=== PATIENT | male | born 1950 | race Caucasian/White ===

== ENCOUNTER 2017-02-09 07:18 | Emergency (ER) | payer OTHER ==
[2017-02-09 07:24] VITALS: BP 163/92; BMI 25.1
[2017-02-09] MEDS ORDERED: DUONEB 0.5 MG/3 MG NEB ONE ×2 (07:57→08:45)
[2017-02-09] MEDS ORDERED: SOLU-Medrol 125 MG VIAL IVP ONE (07:58)
--- NOTE | 2017-02-09 07:58 | DR.GENAD ---
HPI - PCP Primary Care Physician: none - Complaint/Symptoms Chief Complaint Doctors Comments: Patient states that he went to the [facility] over the weekend and slept in the back of his truck. He got exposed to the weather and now had dyspnea Chief Complaint:: " I think I have pnemonia" I slept outside three days ago and i have been sick ever since coughing and runny nose. - Source History Provided: Patient - Mode of Arrival Mode of Arrival: Ambulatory - Timing Onset of Chief Complaint: 02/06/17 <CORAL JUSTIN - Last Filed: 02/09/17 08:05> PMH - PMH Past Medical History: Yes Past Medical History: COPD, Hypertension Past Surgical History: Yes Surgical History: Ortho Surgery - Family History History of Family Medical Conditions: Yes Family Medical History: Diabetes Mellitus - Social History Does any household member use tobacco: No Alcohol Use: None Do you use any recreational Drugs:: No Lives With: Family Lives Where: Home - infectious screening In the last 2 months have you had wt loss of >10#?: NO Have you had fever, night sweats or hemotysis?: No Have you traveled outside the country in the last 6 months?: No Isolation: Standard <CORAL JUSTIN - Last Filed: 02/09/17 08:05> ROS - Review of Systems Constitutional: No Symptoms Reported Eyes: No Symptoms Reported ENTM: No Symptoms Reported Respiratoy: No Symptoms Reported Cardiovascular: No Symptoms Reported Gastrointestinal/Abdominal: No Symptoms Reported Genitourinary: No Symptoms Reported Neurological: No Symptoms Reported Musculoskeletal: No Symptoms Reported Integumentary: No Symptoms Reported Hematologic/Lymphatic: No Symptoms Reported Endocrine: No Symptoms Reported Psychiatric: No Symptoms Reported <CORAL JUSTIN - Last Filed: 02/09/17 08:05> PE - General General Appearance: Alert, In No Apparent Distress - Head Head Exam: Normal Inspection, Atraumatic - Eyes Eye exam: Normal Appearance, PERRL, EOMI - ENT ENT Exam: Normal Exam External Ear Exam: Normal External Inspection TM/Canal Exam: Bilateral Normal Nose Exam: Normal Nose Exam Mouth Exam: Normal Inspection Throat Exam: Normal Inspection - Neck Neck Exam: Normal Inspection, Trachea Midline - Chest Chest Inspection: Normal Inspection - Respiratory Respiratory Exam: Normal Lung Sounds Bilat Respiratory Exam: Bilateral Clear to Auscultation - Cardiovascular Cardiovascular Exam: Regular Rate - Abdominal Exam Abdominal Exam: Normal Inspection Abdominal Tenderness: negative: RUQ, RLQ, LUQ, LLQ, Epigastrium, Suprapubic, Diffuse, Mild, Moderate, Severe, Other - Extremities Extremities Exam: Normal Inspection - Back Back Exam: Normal Inspection - Neurologic Neurological Exam: Alert, Oriented X3, CN II-XII Intact - Psychiatric Psychiatric Exam: Normal Affect - Skin Skin Exam: Warm, Dry, Intact <CORAL JUSTIN - Last Filed: 02/09/17 08:05> ROR - Labs Reviewed Result Diagrams: 02/09/17 08:08 02/09/17 08:08 <MARIPOSA WOODS - Last Filed: 02/09/17 09:59> - Labs Reviewed Laboratory: WBC 12.3 X10^3/uL (3.6-10.0) H 02/09/17 08:08 RBC 4.69 X10^6/uL (4.7-6.0) L 02/09/17 08:08 Hgb 14.8 g/dL (13.5-18.0) 02/09/17 08:08 Hct 43.4 % (42.0-54.0) 02/09/17 08:08 MCV 92.6 fL (80.0-100.0) 02/09/17 08:08 MCH 31.6 pg (27.0-34.0) 02/09/17 08:08 MCHC 34.2 g/dL (33.0-35.0) 02/09/17 08:08 RDW 13.0 % (11.6-16.5) 02/09/17 08:08 Plt Count 199 X10^3/uL (150.0-450.0) 02/09/17 08:08 Plt Count Comment Adequate (ADEQUATE) 02/09/17 08:08 MPV 9.3 fL (7.4-11.0) 02/09/17 08:08 Neut % 78.7 % (42.0-75.0) H 02/09/17 08:08 Lymph % 8.4 % (21.0-51.0) L 02/09/17 08:08 Ellsworth % 12.1 % (0.0-13.0) 02/09/17 08:08 Eos % 0.6 % (0.9-2.9) L 02/09/17 08:08 Baso % 0.2 % (0.2-1.0) 02/09/17 08:08 Neut # 9.7 x10^3/uL (2.2-4.8) H 02/09/17 08:08 Lymph # 1.0 X10^3/uL (1.3-2.9) L 02/09/17 08:08 Ellsworth # 1.5 x10^3/uL (0.3-0.8) H 02/09/17 08:08 Eos # 0.1 x10^3/uL (0.0-0.2) 02/09/17 08:08 Baso # 0.0 X10^3/uL (0.0-0.1) 02/09/17 08:08 Absolute Nucleated RBC 0.0 /100WBC 02/09/17 08:08 Total Counted 100 02/09/17 08:08 Neutrophils % (Manual) 86 % (39-76) H 02/09/17 08:08 Band Neutrophils % 1 % (0-10) 02/09/17 08:08 Lymphocytes % (Manual) 5 % (13-43) L 02/09/17 08:08 Monocytes % (Manual) 8 % (4-9) 02/09/17 08:08 Plt Morphology Comment Normal (NORMAL) 02/09/17 08:08 RBC Morphology Normal (NORMAL) 02/09/17 08:[address] [facility] 02/09/17 08:20 ABG pH 7.450 (7.35-7.45) 02/09/17 08:20 ABG pCO2 34.0 mmHg (35.0-45.0) L 02/09/17 08:20 ABG pO2 65.0 mmHg (80.0-100.0) L 02/09/17 08:20 ABG HCO3 23.6 mmol/L (22-26) 02/09/17 08:20 ABG O2 Saturation 93.0 % (90-100) 02/09/17 08:20 ABG Base Excess 0.1 mmol/L (-2.0-2.0) 02/09/17 08:20 Erwin Test Pos 02/09/17 08:20 A-a Gradient 42.0 mmHg 02/09/17 08:20 FiO2 21.000 02/09/17 08:20 Blood Gas Comments Raghavendra well gb 02/09/17 08:20 Sodium 137 mmol/L (136-145) 02/09/17 08:08 Corrected Sodium TNP 02/09/17 08:08 Potassium 4.0 mmol/L (3.5-5.1) 02/09/17 08:08 Chloride 100 mmol/L (98-107) 02/09/17 08:08 Carbon Dioxide 26.5 mmol/L (21-32) 02/09/17 08:08 BUN 13 mg/dL (7-18) 02/09/17 08:08 Creatinine 0.71 mg/dL (0.70-1.30) 02/09/17 08:08 Est GFR (MDRD) Af Amer > 60 (>60) 02/09/17 08:08 Est GFR (MDRD) Non-Af > 60 (>60) 02/09/17 08:08 Glucose 96 mg/dL (65-99) 02/09/17 08:08 Calcium 8.7 mg/dL (8.5-10.1) 02/09/17 08:08 Corrected Calcium 9.3 mg/dL (8.5-10.1) 02/09/17 08:08 Total Bilirubin 0.40 mg/dL (0.2-1.0) 02/09/17 08:08 AST 17 Units/L (15-37) 02/09/17 08:08 ALT 22 Units/L (12-78) 02/09/17 08:08 Alkaline Phosphatase 67 Units/L (46-116) 02/09/17 08:08 Total Protein 7.4 g/dL (6.4-8.2) 02/09/17 08:08 Albumin 3.2 g/dL (3.4-5.0) L 02/09/17 08:08 Globulin 4.2 g/dL (2.5-4.5) 02/09/17 08:08 Albumin/Globulin Ratio 0.8 Ratio (1.1-2.1) L 02/09/17 08:08 (MARIPOSA WOODS) <CORAL JUSTIN - Last Filed: 02/09/17 08:05> <MARIPOSA WOODS - Last Filed: 02/09/17 09:59> - Diagnosis Discharge Problem: Acute bronchitis, COPD (chronic obstructive pulmonary disease) with acute bronchitis - Discharge Plan Disposition: 01 HOME, SELF-CARE Condition: Stable Prescriptions: Azithromycin [ZITHROMAX Tab 250 mg *] 1 dose PO DAILY #6 tab Methylprednisolone Dosepak 4Mg [MEDROL DOSEPAK (4 mg tab x 21)] 1 thuan PO ONCE # 1 thuan - Follow ups/Referrals Follow ups/Referrals: NFD,None [Primary Care Provider] - 3 days - Instructions
[2017-02-09] MEDS ORDERED: NS 1000 ML 1,000 ML IV SCH (08:00)
[2017-02-09] MEDS ORDERED: DUONEB 0.5 MG/3 MG ONE (08:00)
[2017-02-09] MEDS ORDERED: SOLU-Medrol 125 MG VIAL ONE (08:05)
[2017-02-09 08:19] LABS: BASOPHILS % (AUTO) 0.2 % (0.2-1.0); EOSINOPHILS # (AUTO) 0.1 x10^3/uL (0.0-0.2); EOSINOPHILS % (AUTO) 0.6 % (0.9-2.9); HEMATOCRIT 43.4 % (42.0-54.0); HEMOGLOBIN 14.8 g/dL (13.5-18.0); LYMPHOCYTES % (AUTO) 8.4 % (21.0-51.0); MEAN CORPUSCULAR HEMOGLOBIN 31.6 pg (27.0-34.0); MEAN CORPUSCULAR HGB CONC 34.2 g/dL (33.0-35.0); MEAN CORPUSCULAR VOLUME 92.6 fL (80.0-100.0); MEAN PLATELET VOLUME 9.3 fL (7.4-11.0); MONOCYTES # (AUTO) 1.5 x10^3/uL (0.3-0.8); MONOCYTES % (AUTO) 12.1 % (0.0-13.0); NEUTROPHILS # (AUTO) 9.7 x10^3/uL (2.2-4.8); NEUTROPHILS % (AUTO) 78.7 % (42.0-75.0); PLATELET COUNT 199 X10^3/uL (150.0-450.0); RED BLOOD COUNT 4.69 X10^6/uL (4.7-6.0); WHITE BLOOD COUNT 12.3 X10^3/uL (3.6-10.0)
[2017-02-09] MEDS ORDERED: DECADRON INJ IM ONE (08:21)
--- NOTE | 2017-02-09 08:21 | RAD ---
HISTORY: COPD exacerbation Study: AP chest Comparison: 06/22/2016 Findings: There is moderate upper lobe predominant centrilobular emphysema. Since previous examination there h as been development of reticulonodular interstitial opacities in the left lung base The left lateral costophrenic sulcus was excluded from the field of view. The cardiac silhouette is normal in size. IMPRESSION: 1. Emphysema, with interval increased reticulonodular interstitial opacities in the left lung base. This is nonspecific however can be seen in the setting of atypical pneumonia. Radiographic followup recommended.. Reported By:
[2017-02-09 08:25] LABS: ABG ALLEN TEST POS; ABG BASE EXCESS 0.1 mmol/L (-2.0-2.0); ABG HCO3 23.6 mmol/L (22-26)
[2017-02-09 08:35] LABS: ALANINE AMINOTRANSFERASE 22 Units/L (12-78); ALBUMIN 3.2 g/dL (3.4-5.0); ALKALINE PHOSPHATASE 67 Units/L (46-116); ASPARTATE AMINO TRANSFERASE 17 Units/L (15-37); BLOOD UREA NITROGEN 13 mg/dL (7-18); CALCIUM 8.7 mg/dL (8.5-10.1); CARBON DIOXIDE 26.5 mmol/L (21-32); CHLORIDE 100 mmol/L (98-107); COR CA(FOR HYPOALB) 9.3 mg/dL (8.5-10.1); CREATININE 0.71 mg/dL (0.70-1.30); GLUCOSE 96 mg/dL (65-99); SODIUM 137 mmol/L (136-145); TOTAL PROTEIN 7.4 g/dL (6.4-8.2); eGFR BLACK RACES > 60 (>60); eGFR NON BLACK RACES > 60 (>60)
[2017-02-09 08:42] LABS: BAND NEUTROPHILS % 1 % (0-10)
[2017-02-09 08:44] LABS: PLATELET MORPHOLOGY COMMENT NORMAL (NORMAL)
[2017-02-09] MEDS ORDERED: ROCEPHIN VIAL 2 GM 2 GM in NS 50 ML IV + SPIKE MINIBAG* 50 ML IV ONE (08:44)
[2017-02-09] MEDS ORDERED: ROCEPHIN VIAL 2 GM ONE (09:28)
[2017-02-09] MEDS ORDERED: NS 1000 ML 1,000 ML ONE (09:28)
[2017-02-09] MEDS ORDERED: DECADRON INJ ONE (09:29)
[2017-02-09] MEDS ORDERED: NS 50 ML IV + SPIKE MINIBAG* 50 ML IV ONE (09:29)
== END 2017-02-09 10:35 | disposition home or self-care (01) ==
LOC: ER 07:28
DX: J20.9 Acute bronchitis, unspecified (principal); J44.1 Chronic obstructive pulmonary disease with (acute) exacerbation; J43.8 Other emphysema
CPT/HCPCS: 36415; 36600; 71010; 80053; 82803; 85025; 94640; 96365; 96367; 96372; 96374; 99283; A4222; J0696; J1100; J2930; J7620

== ENCOUNTER 2017-05-01 09:58 | Inpatient (IN) | payer OTHER ==
[2017-05-01] MEDS ORDERED: SOLU-Medrol 125 MG VIAL IVP NR (11:35)
[2017-05-01] MEDS: DUONEB 0.5 MG/3 MG NEB SCH ×4 (11:51→20:58)
[2017-05-01 11:54] VITALS: BMI 25.1
[2017-05-01 12:24] LABS: BASOPHILS % (AUTO) 0.2 % (0.2-1.0); EOSINOPHILS % (AUTO) 0.2 % (0.9-2.9); HEMATOCRIT 41.1 % (42.0-54.0); LYMPHOCYTES # (AUTO) 1.1 X10^3/uL (1.3-2.9); LYMPHOCYTES % (AUTO) 11.6 % (21.0-51.0); MEAN CORPUSCULAR HEMOGLOBIN 31.9 pg (27.0-34.0); MEAN CORPUSCULAR VOLUME 93.6 fL (80.0-100.0); MEAN PLATELET VOLUME 9.1 fL (7.4-11.0); MONOCYTES % (AUTO) 20.6 % (0.0-13.0); NEUTROPHILS # (AUTO) 6.4 x10^3/uL (2.2-4.8); NEUTROPHILS % (AUTO) 67.4 % (42.0-75.0); PLATELET COUNT 212 X10^3/uL (150.0-450.0); RED BLOOD COUNT 4.39 X10^6/uL (4.7-6.0); RED CELL DISTRIBUTION WIDTH 13.3 % (11.6-16.5); WHITE BLOOD COUNT 9.5 X10^3/uL (3.6-10.0)
[2017-05-01] MEDS: KLONOPIN TAB 0.5 MG PO SCH ×2 (12:30→21:06)
[2017-05-01 12:34] LABS: PLATELET MORPHOLOGY COMMENT NORMAL (NORMAL)
[2017-05-01 12:47] LABS: ALANINE AMINOTRANSFERASE 21 Units/L (12-78); ALBUMIN 3.3 g/dL (3.4-5.0); ALKALINE PHOSPHATASE 65 Units/L (46-116); ASPARTATE AMINO TRANSFERASE 15 Units/L (15-37); BLOOD UREA NITROGEN 12 mg/dL (7-18); CALCIUM 9.3 mg/dL (8.5-10.1); CARBON DIOXIDE 29.7 mmol/L (21-32); CHLORIDE 100 mmol/L (98-107); COR CA(FOR HYPOALB) 9.9 mg/dL (8.5-10.1); CREATINE KINASE 88 Units/L (39-308); CREATINE KINASE MB 3.5 ng/mL (0-4.0); CREATININE 0.84 mg/dL (0.70-1.30); SODIUM 137 mmol/L (136-145); TOTAL PROTEIN 6.9 g/dL (6.4-8.2); TROPONIN I < 0.02 ng/mL (0-1.5); eGFR BLACK RACES > 60 (>60); eGFR NON BLACK RACES > 60 (>60)
[2017-05-01 15:45] LABS: CKMB % 3.9 % (<4); CREATINE KINASE 74 Units/L (39-308); CREATINE KINASE MB 2.9 ng/mL (0-4.0); TROPONIN I < 0.02 ng/mL (0-1.5)
--- NOTE | 2017-05-01 17:08 | RAD ---
HISTORY: Shortness of breath Study: Single view chest Comparison: 02/09/2017 Findings: Single portable view is submitted. The lungs are clear without consolidation, effusion or pneumothora x. The cardiac and mediastinal contours are within normal limits. The soft tissues are unremarkable. IMPRESSION: 1. No acute cardiopulmonary abnormality. Reported By:
[2017-05-01 19:39] LABS: CKMB % 4.1 % (<4); CREATINE KINASE 70 Units/L (39-308); CREATINE KINASE MB 2.9 ng/mL (0-4.0); TROPONIN I < 0.02 ng/mL (0-1.5)
[2017-05-01] MEDS: SOLU-Medrol 40 MG VIAL IVP SCH (21:06)
[2017-05-01] MEDS ORDERED: PEPCID TAB 20 MG PO SCH (22:00)
[2017-05-02 00:13] LABS: CKMB % 4.7 % (<4); CREATINE KINASE 58 Units/L (39-308); CREATINE KINASE MB 2.7 ng/mL (0-4.0); TROPONIN I < 0.02 ng/mL (0-1.5)
[2017-05-02] MEDS: DUONEB 0.5 MG/3 MG NEB SCH ×2 (00:46→05:27)
[2017-05-02] MEDS: SOLU-Medrol 40 MG VIAL IVP SCH (05:32)
[2017-05-02 05:48] LABS: ABG ALLEN TEST POS
[2017-05-02 05:55] LABS: ALANINE AMINOTRANSFERASE 20 Units/L (12-78); ALBUMIN 2.9 g/dL (3.4-5.0); ALKALINE PHOSPHATASE 60 Units/L (46-116); ASPARTATE AMINO TRANSFERASE 14 Units/L (15-37); BLOOD UREA NITROGEN 14 mg/dL (7-18); CALCIUM 9.3 mg/dL (8.5-10.1); CARBON DIOXIDE 31.4 mmol/L (21-32); CHLORIDE 102 mmol/L (98-107); COR CA(FOR HYPOALB) 10.2 mg/dL (8.5-10.1); COR NA(FOR HYPERGLY) 140 mmol/L (136-145); CREATININE 0.72 mg/dL (0.70-1.30); SODIUM 139 mmol/L (136-145); TOTAL PROTEIN 6.7 g/dL (6.4-8.2); eGFR BLACK RACES > 60 (>60); eGFR NON BLACK RACES > 60 (>60)
[2017-05-02 06:04] LABS: BASOPHILS % (AUTO) 0.1 % (0.2-1.0); HEMATOCRIT 42.1 % (42.0-54.0); HEMOGLOBIN 14.1 g/dL (13.5-18.0); LYMPHOCYTES # (AUTO) 0.7 X10^3/uL (1.3-2.9); LYMPHOCYTES % (AUTO) 8.4 % (21.0-51.0); MEAN CORPUSCULAR HEMOGLOBIN 31.5 pg (27.0-34.0); MEAN CORPUSCULAR HGB CONC 33.6 g/dL (33.0-35.0); MONOCYTES % (AUTO) 11.3 % (0.0-13.0); NEUTROPHILS # (AUTO) 7.1 x10^3/uL (2.2-4.8); NEUTROPHILS % (AUTO) 80.2 % (42.0-75.0); PLATELET COUNT 221 X10^3/uL (150.0-450.0); RED BLOOD COUNT 4.48 X10^6/uL (4.7-6.0); RED CELL DISTRIBUTION WIDTH 13.7 % (11.6-16.5); WHITE BLOOD COUNT 8.9 X10^3/uL (3.6-10.0)
[2017-05-02 06:59] VITALS: BP 183/94
[2017-05-02] MEDS ORDERED: MUCINEX DM PO SCH (09:00)
[2017-05-02 18:34] LABS: ABG BASE EXCESS 7.8 mmol/L (-2.0-2.0)
[2017-05-02 18:36] LABS: ABG HCO3 34.5 mmol/L (22-26)
[2017-05-02 18:37] LABS: FRACTIONATED INSPIRED OXYGEN 28
--- NOTE | 2017-05-04 10:02 | DR.CARTERS ---
Short Stay Summary - Short Stay Summary for: Short Stay Summary for Date of:: 05/02/17 - Admission Date Date of Admission: 05/01/17 - Discharge Date Discharge Date: 05/02/17 - Admission Diagnoses (1) COPD (chronic obstructive pulmonary disease) with acute bronchitis Status: Acute - Hospital Course Hospital Course: DAY 1: IS A 66 YEAR OLD WHITE MALE WHO WAS A DIRECT ADMISSION FOR COPD , HYPOXIA, SHORTNESS OF BREATH, AND BRONCHITIS. HE PRESENTED WITH COMPLAINTS OF SHORTNESS OF BREATH AND COUGH FOR SEVERAL DAYS PRIOR TO BEING SEEN. PATIENT REPORTED THAT HE HAS A HISTORY OF COPD. HE REPORTED THAT SYMPTOMS HAVE PROGRESSIVELY GOTTEN WORSE DESPITE COMPLIANCE WITH INHALERS AND COPD MEDICATIONS. ON EXAMINATION, HE WAS NOTED WITH WHEEZING AND RHONCHI BILATERALLY WITH DIMINISHED LUNG SOUNDS. HIS OXYGEN SATURATIONS IN THE OFFICE WERE NOTED TO BE IN THE 80S. PATIENT HAD PRODUCTIVE COUGH WITH THICK, YELLOW SPUTUM. WE ADMITTED PATIENT FOR FURTHER TREATMENT AND EVALUATION OF COPD WITH ACUTE EXACERBATION WITH BRONCHITIS. HE WAS STARTED ON Duoneb 1nebule q4hour, Klonopin 0.5mg po BID, Solumedrol 80mg IV q8hour. WE PLANNED TO REVIEW HOME MEDICATIONS WHEN THEY ARE CONFIRMED. ON ADMISSION, HIS VITALS WERE 98.5-107-25- 96%-134/85. A CBC, CMP, AND CHEST XRAY WERE OBTAINED ON ADMISSION. ABNORMAL LAB VALUES INCLUDE THE FOLLOWING: RBC 4.39, Hct 41.1, Glucose 101, Albumin 3.3, A/G Ratio 0.9. WE OBTAINED SPUTUM AND BLOOD CULTURES. RESULTS ARE PENDING. AN EKG REPORTED SINUS TACHYCARDIA WITH HR 109. CHEST XRAY REPORTED NO ACUTE CARDIOPULMONARY ABNORMALITY. WE PLANNED TO FOLLOW UP WITH AM LABS AND CONTINUE TO MONITOR PATIENT. DAY 2: PATIENT RESTED WELL THROUGHOUT THE NIGHT. A CBC, CMP, AND ABG WERE OBTAINED THIS MORNING. ABNORMAL LAB VALUES INCLUDE THE FOLLOWING: RBC 4.48, GLUCOSE 153, CALCIUM 10.2, AST 14, ALBUMIN 2.9. ABG REPORTED PH 7.390, PC02 57, P02 62, HC03 34.5. MOST RECENT EKG REPORTED SINUS RHYTHM WITH HR 88. STAFF REPORTS THAT AT APPROXIMATELY 0550, PATIENT REPORTED DIFFICULTY BREATHING AFTER HIS BREATHING TREATMENT. PATIENT REQUESTED MORE PRIMATENE TABLETS. PATIENT REPORTED THAT HE HAD ALREADY SELF MEDICATED WITH 6 PRIMATENE TABS THROUGHOUT THE NIGHT. PATIENT ALSO STATED THAT HE WAS LEAVING IF HE COULD NOT TAKE HIS MEDICATIONS THE WAY HE WANTED TO. PATIENT SIGNED OUT AGAINST MEDICAL ADVICE AND CALLED SPOUSE TO PICK HIM UP BEFORE MORNING ROUNDS. - Discharge Medications Discharge Medications: Albuterol Neb 2.5MG/ 3Ml [ALBUTEROL NEB 2.5MG/ 3ML *] 1 nebule INH Q4-6H PRN [History] Guaifenesin/Dextromethorphan [Mucinex Dm ER 1,200-60 mg Tab] 1 tab PO BID [History] Guaifenesin/Ephedrine HCl [Primatene Asthma Tablet] 1 tab PO Q4-6H PRN 05/01/17 [History] Ipratropium-Albuterol [Combivent Respimat Inhaler] 1 puff INH Q4-6H PRN [History] - Discharge Plan Disposition: 07 AGAINST MEDICAL ADVICE Condition: Fair - Follow up/Referrals Follow up/Referrals: FREEMAN CYR [Nurse Practitioner] - - Instructions
== END 2017-05-02 06:07 | disposition left against medical advice (07) | DRG 204 ==
LOC: ICU 09:58 → UNDOADMIN 09:58 → ICU 10:45
PROVIDERS: ADMIT Internal Medicine; ATTEND Internal Medicine
DX: R06.02 Shortness of breath (principal); J44.9 Chronic obstructive pulmonary disease, unspecified; R09.02 Hypoxemia; J20.8 Acute bronchitis due to other specified organisms
CPT/HCPCS: 36415; 36600; 71010; 80053; 82550; 82553; 82803; 84484; 85025; 87040; 87070; 87205; 93005; 94640; A4222; J2920; J2930; J7620